=== PATIENT | female | born 1950 | race Caucasian/White ===

== ENCOUNTER → 2016-10-28 | Outpatient (CLI) | payer MEDICARE ==
[~2016-10-28] MED LIST: AMLODIPINE5 MG PO; ASPIRIN FOR CHI81 MG PO; CEFTIN250 MG PO; CENTRUM SILVER1 TA2 PO; CIPROFLOXACIN500 MG PO; DETROL LA4 MG PO; GLYBURIDE5 MG PO; JANUVIA100 MG PO; LEVEMIR10 ML SC; LOVAZA1 GM PO; MACROBID100 M1 PO; METFORMIN1000 MG PO; OXYBUTYNIN10 MG PO; PAXIL40 MG PO; PRINIVIL20 MG PO; REGLAN10 MG PO; SYNTHROID,LEV125 MCG PO; VITAMIN D31000 I2 PO
== END | disposition home or self-care (01) ==
LOC: CARD 09:10
DX: R00.2 Palpitations (principal)

== ENCOUNTER → 2016-11-10 | Outpatient (CLI) | payer MEDICARE | END | disposition home or self-care (01) | LOC: D 10:18 | DX: E11.65 Type 2 diabetes mellitus with hyperglycemia (principal) ==

== ENCOUNTER → 2016-12-02 | Outpatient (CLI) | payer MEDICARE ==
[~2016-12-02] MED LIST changes: +OMEPRAZOLE20 M2 PO; +SIMVASTATIN20 MG PO; +ZETIA10 MG PO
== END | disposition home or self-care (01) ==
LOC: CARD 03:34
DX: I10 Essential (primary) hypertension (principal); G45.1 Carotid artery syndrome (hemispheric); R07.89 Other chest pain; R53.83 Other fatigue; R00.2 Palpitations

== ENCOUNTER 2017-12-20 19:04 | Inpatient (IN) | payer MEDICARE ==
[~2017-12-20] VITALS: Ht 154.9 cm; Wt 88.5 kg
[2017-12-20 19:10] VITALS: BP 199/85
[2017-12-20 20:09] VITALS: BP 166/55
[2017-12-20 20:25] LABS: BASO # 0.1 10*3/uL (0.0-0.1); BASO % 0.8 % (0.0-1.0); EOS # 0.5 10*3/uL (0.0-0.4); EOS % 4.9 % (1.0-4.0); HEMATOCRIT 37.2 % (37.0-47.0); HEMOGLOBIN 12.3 g/dl (12.0-16.0); LYMPH # 2.9 10*3/uL (1.3-4.4); LYMPH % 30.8 % (27.0-41.0); MEAN CELL VOLUME 90.1 fl (81.0-99.0); MEAN CORPUSCULAR HGB 29.8 pg (27.0-31.0); MEAN CORPUSCULAR HGB CONC 33.1 g/dl (33.0-37.0); MEAN PLATELET VOLUME 9.4 fl (9.6-12.3); MONO # 0.9 10*3/uL (0.1-1.0); MONO % 9.6 % (3.0-9.0); NEUT # 5.1 10*3/uL (2.3-7.9); NEUT % 53.6 % (47.0-73.0); PLATELET COUNT AUTOMATED 297 10*3/uL (130-400); RED BLOOD COUNT 4.13 10*6/uL (4.10-5.10); RED CELL DISTRI WIDTH 13.3 % (0-14.5); WHITE BLOOD COUNT 9.6 10*3/uL (4.8-10.8)
[2017-12-20 20:26] VITALS: BP 200/80
[2017-12-20 20:42] LABS: ALBUMIN 3.6 gm/dl (3.1-4.5); ALKALINE PHOSPHATASE 47 U/L (45-117); BUN 14 mg/dl (7-24); CHLORIDE 102 mmol/L (98-107); CREATININE 1.05 mg/dL (0.55-1.02); POTASSIUM 3.8 mmol/L (3.5-5.1); SGOT/AST 24 IU/L (3-35); SGPT/ALT 29 U/L (12-78); SODIUM 138 mmol/L (136-145); TOTAL PROTEIN 7.1 gm/dL (6.4-8.2)
[2017-12-20 20:46] LABS: TROPONIN I < 0.015 ng/ml (<0.045)
[2017-12-20 20:47] VITALS: BP 148/60
[2017-12-20 22:05] VITALS: BP 163/79
[2017-12-20] MEDS ORDERED: GLUCOTROL10 MG PO (22:27)
[2017-12-20] MEDS ORDERED: TRULICITY0.75 MG/0. SC (22:29)
[2017-12-21] VITALS: BP 188/68
[2017-12-21 01:51] LABS: BILIRUBIN NEGATIVE (NEGATIVE); BLOOD NEGATIVE (NEGATIVE); CLARITY CLEAR (CLEAR); COLOR YELLOW (YELLOW); GLUCOSE 2+ (NEGATIVE); KETONE NEGATIVE (NEGATIVE); LEUKO ESTERASE NEGATIVE (NEGATIVE); NITRITE NEGATIVE (NEGATIVE); UROBILINOGEN 0.2 E.U./dl (0.2-1.0)
[2017-12-21 02:00] VITALS: BP 158/80
[2017-12-21 02:01] LABS: URINE AMPHETAMINES < 1000 (1000ng/ml); URINE BARBITURATES < 200 (200ng/ml); URINE BENZODIAZEPINES < 200 (200ng/ml); URINE CANNABINOIDS (THC) < 50 (50ng/ml); URINE COCAINE < 300 (300ng/ml); URINE METHADONE < 300 (300ng/ml); URINE OPIATES < 300 (300ng/ml)
[2017-12-21 02:02] LABS: URINE PHENCYCLIDINE < 25 (25ng/ml)
[2017-12-21 03:09] LABS: BASO % 0.3 % (0.0-1.0); EOS % 0.2 % (1.0-4.0); HEMOGLOBIN 12.6 g/dl (12.0-16.0); LYMPH # 1.4 10*3/uL (1.3-4.4); LYMPH % 15.4 % (27.0-41.0); MEAN CELL VOLUME 89.6 fl (81.0-99.0); MEAN CORPUSCULAR HGB 29.7 pg (27.0-31.0); MEAN CORPUSCULAR HGB CONC 33.2 g/dl (33.0-37.0); MEAN PLATELET VOLUME 9.7 fl (9.6-12.3); MONO # 0.2 10*3/uL (0.1-1.0); NEUT # 7.6 10*3/uL (2.3-7.9); NEUT % 80.9 % (47.0-73.0); PLATELET COUNT AUTOMATED 295 10*3/uL (130-400); RED BLOOD COUNT 4.24 10*6/uL (4.10-5.10); RED CELL DISTRI WIDTH 13.2 % (0-14.5); WHITE BLOOD COUNT 9.4 10*3/uL (4.8-10.8)
[2017-12-21 03:29] LABS: ALBUMIN 3.3 gm/dl (3.1-4.5); ALKALINE PHOSPHATASE 46 U/L (45-117); BUN 13 mg/dl (7-24); CHLORIDE 101 mmol/L (98-107); CHOLESTEROL 133 mg/dL (<200); CREATININE 1.04 mg/dL (0.55-1.02); HDL CHOLESTEROL 41 mg/dl (40-60); LDL CHOLESTEROL 68 mg/dL (9-159); PHOSPHOROUS 2.4 mg/dL (2.5-4.9); POTASSIUM 4.2 mmol/L (3.5-5.1); SGOT/AST 31 IU/L (3-35); SGPT/ALT 30 U/L (12-78); SODIUM 135 mmol/L (136-145); TOTAL PROTEIN 6.9 gm/dL (6.4-8.2); TRIGLYCERIDES 121 mg/dl (<150); VLDL CHOLESTEROL 24 mg/dL (6-40)
[2017-12-21 03:30] LABS: ACT PARTIAL THROMBO TIME 26.1 SECONDS (20.8-31.5); FREE T4 1.03 ng/dl (0.76-1.46)
[2017-12-21 03:34] LABS: THYROID STIM HORMONE (HS) 0.398 uIU/ml (0.358-4.75)
[2017-12-21 08:00] VITALS: BP 116/55
[2017-12-21 12:00] VITALS: BP 143/59
[2017-12-21 16:00] VITALS: BP 127/55
[2017-12-21 20:00] VITALS: BP 104/61
[2017-12-22] VITALS: BP 128/51
[2017-12-22 06:51] LABS: BASO # 0.1 10*3/uL (0.0-0.1); BASO % 0.5 % (0.0-1.0); EOS # 0.4 10*3/uL (0.0-0.4); EOS % 4.6 % (1.0-4.0); HEMATOCRIT 38.5 % (37.0-47.0); HEMOGLOBIN 12.3 g/dl (12.0-16.0); LYMPH # 3.7 10*3/uL (1.3-4.4); LYMPH % 39.9 % (27.0-41.0); MEAN CELL VOLUME 91.4 fl (81.0-99.0); MEAN CORPUSCULAR HGB 29.2 pg (27.0-31.0); MEAN CORPUSCULAR HGB CONC 31.9 g/dl (33.0-37.0); MONO # 0.8 10*3/uL (0.1-1.0); MONO % 8.3 % (3.0-9.0); NEUT # 4.2 10*3/uL (2.3-7.9); NEUT % 46.4 % (47.0-73.0); PLATELET COUNT AUTOMATED 317 10*3/uL (130-400); RED BLOOD COUNT 4.21 10*6/uL (4.10-5.10); RED CELL DISTRI WIDTH 13.6 % (0-14.5); WHITE BLOOD COUNT 9.1 10*3/uL (4.8-10.8)
[2017-12-22 06:54] LABS: ALBUMIN 3.4 gm/dl (3.1-4.5); CREATININE 1.11 mg/dL (0.55-1.02); PHOSPHOROUS 3.4 mg/dL (2.5-4.9); POTASSIUM 4.4 mmol/L (3.5-5.1); TOTAL PROTEIN 6.9 gm/dL (6.4-8.2)
[2017-12-22 08:00] VITALS: BP 139/73
[2017-12-22] MEDS ORDERED: TRULICITY1.5 MG/0.5 SC (10:03)
[2017-12-22] MEDS ORDERED: Zestril,Prinivi40 MG PO (10:03)
[2017-12-22] MEDS ORDERED: COREG3.125 MG PO (10:03)
[2017-12-22] MEDS ORDERED: CRESTOR40 M1 PO (10:04)
[2017-12-22 12:00] VITALS: BP 160/64
[2017-12-22] MEDS ORDERED: SIMVASTATIN40 MG PO (12:28)
== END 2017-12-22 13:10 | disposition home or self-care (01) | DRG 64 ==
LOC: ED 19:04 → 5E 20:56 → EDHOLD 20:56 → 5E 21:50
PROVIDERS: Emergency Medicine Emergency Medical Services; Internal Medicine; Internal Medicine Hospice and Palliative Medicine
DX: I63.9 Cerebral infarction, unspecified (principal); G93.41 Metabolic encephalopathy; N17.0 Acute kidney failure with tubular necrosis; I16.1 Hypertensive emergency; R00.1 Bradycardia, unspecified; R80.9 Proteinuria, unspecified; R81 Glycosuria; E11.65 Type 2 diabetes mellitus with hyperglycemia; I10 Essential (primary) hypertension; E78.5 Hyperlipidemia, unspecified; E03.9 Hypothyroidism, unspecified; F32.9 Major depressive disorder, single episode, unspecified; F41.9 Anxiety disorder, unspecified; E55.9 Vitamin D deficiency, unspecified; E66.01 Morbid (severe) obesity due to excess calories; I11.9 Hypertensive heart disease without heart failure; Z88.0 Allergy status to penicillin; Z88.2 Allergy status to sulfonamides; Z88.8 Allergy status to other drugs, medicaments and biological substances; Z79.899 Other long term (current) drug therapy; Z79.82 Long term (current) use of aspirin; Z90.49 Acquired absence of other specified parts of digestive tract; Z87.440 Personal history of urinary (tract) infections; Z82.49 Family history of ischemic heart disease and other diseases of the circulatory system; Z83.3 Family history of diabetes mellitus; Z82.3 Family history of stroke; Z85.3 Personal history of malignant neoplasm of breast; Z80.0 Family history of malignant neoplasm of digestive organs; Z68.36 Body mass index [BMI] 36.0-36.9, adult

== ENCOUNTER 2017-12-23 23:42 | Emergency (ER) | payer MEDICARE ==
[~2017-12-23] VITALS: Ht 154.9 cm; Wt 81.6 kg
[~2017-12-23 23:42] MED LIST changes: +COREG3.125 MG PO; +CRESTOR40 M1 PO; +GLUCOTROL10 MG PO; +SIMVASTATIN40 MG PO; +TRULICITY0.75 MG/0. SC; +TRULICITY1.5 MG/0.5 SC; +Zestril,Prinivi40 MG PO
[2017-12-24 01:31] LABS: BASO # 0.1 10*3/uL (0.0-0.1); BASO % 0.7 % (0.0-1.0); EOS # 0.5 10*3/uL (0.0-0.4); EOS % 4.2 % (1.0-4.0); HEMATOCRIT 39.5 % (37.0-47.0); HEMOGLOBIN 12.7 g/dl (12.0-16.0); LYMPH # 2.8 10*3/uL (1.3-4.4); LYMPH % 24.8 % (27.0-41.0); MEAN CELL VOLUME 92.1 fl (81.0-99.0); MEAN CORPUSCULAR HGB 29.6 pg (27.0-31.0); MEAN CORPUSCULAR HGB CONC 32.2 g/dl (33.0-37.0); MEAN PLATELET VOLUME 9.8 fl (9.6-12.3); MONO # 1.1 10*3/uL (0.1-1.0); MONO % 9.2 % (3.0-9.0); NEUT % 60.8 % (47.0-73.0); PLATELET COUNT AUTOMATED 288 10*3/uL (130-400); RED BLOOD COUNT 4.29 10*6/uL (4.10-5.10); RED CELL DISTRI WIDTH 13.4 % (0-14.5); WHITE BLOOD COUNT 11.5 10*3/uL (4.8-10.8)
[2017-12-24 01:46] LABS: CREATININE 1.43 mg/dL (0.55-1.02); POTASSIUM 4.1 mmol/L (3.5-5.1)
[2017-12-24] MEDS ORDERED: MIRALAX POWDER255 G1 PO (02:32)
[2017-12-24 02:37] VITALS: BP 149/66
== END 2017-12-24 00:31 | disposition home or self-care (01) ==
LOC: ED 23:42
PROVIDERS: Hospitalist
DX: R51 Headache (principal); K59.00 Constipation, unspecified; I10 Essential (primary) hypertension; E66.9 Obesity, unspecified; E11.9 Type 2 diabetes mellitus without complications; E78.5 Hyperlipidemia, unspecified; E03.9 Hypothyroidism, unspecified; Z96.652 Presence of left artificial knee joint; Z98.890 Other specified postprocedural states; Z79.899 Other long term (current) drug therapy; Z79.82 Long term (current) use of aspirin; Z85.3 Personal history of malignant neoplasm of breast; Z88.0 Allergy status to penicillin; Z88.2 Allergy status to sulfonamides; Z86.73 Personal history of transient ischemic attack (TIA), and cerebral infarction without residual deficits; Z88.1 Allergy status to other antibiotic agents; Z88.6 Allergy status to analgesic agent

== ENCOUNTER → 2018-01-04 | Outpatient (CLI) | payer MEDICARE ==
[~2018-01-04] MED LIST changes: +MIRALAX POWDER255 G1 PO
[2018-01-04 10:52] LABS: BILIRUBIN NEGATIVE (NEGATIVE); BLOOD NEGATIVE (NEGATIVE); CLARITY SL CLOUDY (CLEAR); COLOR YELLOW (YELLOW); GLUCOSE NEGATIVE (NEGATIVE); KETONE NEGATIVE (NEGATIVE); LEUKO ESTERASE 3+ (NEGATIVE); NITRITE NEGATIVE (NEGATIVE); SPECIFIC GRAVITY 1.015 (1.005-1.030); UROBILINOGEN 0.2 E.U./dl (0.2-1.0)
[2018-01-04 10:58] LABS: HEMATOCRIT 42.6 % (37.0-47.0); HEMOGLOBIN 13.7 g/dl (12.0-16.0); MEAN CELL VOLUME 90.8 fl (81.0-99.0); MEAN CORPUSCULAR HGB 29.2 pg (27.0-31.0); MEAN CORPUSCULAR HGB CONC 32.2 g/dl (33.0-37.0); MEAN PLATELET VOLUME 10.5 fl (9.6-12.3); PLATELET COUNT AUTOMATED 309 10*3/uL (130-400); RED BLOOD COUNT 4.69 10*6/uL (4.10-5.10); WHITE BLOOD COUNT 13.3 10*3/uL (4.8-10.8)
[2018-01-04 11:12] LABS: BACTERIA 3+; EPITHELIAL CELLS 20-25; WBC 31-40 wbc/hpf (0-5)
[2018-01-04 11:25] LABS: BASOPHILS 1 % (0-1); TOTAL CELLS COUNTED 100 #CELLS
[2018-01-04 11:26] LABS: PLATELET SUFFICIENCY NORMAL (NORMAL)
[2018-01-04 11:36] LABS: ALBUMIN 3.8 gm/dl (3.1-4.5); CREATININE 1.51 mg/dL (0.55-1.02); POTASSIUM 4.1 mmol/L (3.5-5.1)
[2018-01-04 11:37] LABS: PHOSPHOROUS 3.7 mg/dL (2.5-4.9)
[2018-01-04 13:49] LABS: VITAMIN D, 25-HYDROXY 25.6 ng/mL (30-100)
[2018-01-04 13:50] LABS: PTH INTACT 73.4 pg/mL (14.0-72.0)
== END | disposition home or self-care (01) ==
LOC: LAB 10:03
PROVIDERS: Internal Medicine Nephrology
DX: E11.22 Type 2 diabetes mellitus with diabetic chronic kidney disease (principal); N18.3 Chronic kidney disease, stage 3 (moderate); N25.81 Secondary hyperparathyroidism of renal origin

== ENCOUNTER → 2018-02-13 | Outpatient (CLI) | payer MEDICARE ==
[2018-02-13 09:26] LABS: BASO # 0.1 10*3/uL (0.0-0.1); BASO % 0.7 % (0.0-1.0); EOS # 0.4 10*3/uL (0.0-0.4); EOS % 5.6 % (1.0-4.0); HEMATOCRIT 38.2 % (37.0-47.0); HEMOGLOBIN 12.3 g/dl (12.0-16.0); LYMPH # 2.9 10*3/uL (1.3-4.4); LYMPH % 38.3 % (27.0-41.0); MEAN CELL VOLUME 91.2 fl (81.0-99.0); MEAN CORPUSCULAR HGB 29.4 pg (27.0-31.0); MEAN CORPUSCULAR HGB CONC 32.2 g/dl (33.0-37.0); MEAN PLATELET VOLUME 9.8 fl (9.6-12.3); MONO # 0.7 10*3/uL (0.1-1.0); MONO % 9.7 % (3.0-9.0); NEUT # 3.4 10*3/uL (2.3-7.9); NEUT % 45.4 % (47.0-73.0); PLATELET COUNT AUTOMATED 296 10*3/uL (130-400); RED BLOOD COUNT 4.19 10*6/uL (4.10-5.10); RED CELL DISTRI WIDTH 13.2 % (0-14.5); WHITE BLOOD COUNT 7.4 10*3/uL (4.8-10.8)
[2018-02-13 09:37] LABS: ALBUMIN 3.6 gm/dl (3.1-4.5); CREATININE 1.13 mg/dL (0.55-1.02); PHOSPHOROUS 3.2 mg/dL (2.5-4.9)
[2018-02-13 10:52] LABS: PTH INTACT 106.1 pg/mL (18.5-88.0); VITAMIN D, 25-HYDROXY 41.1 ng/mL (30-100)
[2018-02-13 11:36] LABS: BILIRUBIN NEGATIVE (NEGATIVE); BLOOD NEGATIVE (NEGATIVE); CLARITY SL CLOUDY (CLEAR); COLOR YELLOW (YELLOW); GLUCOSE NEGATIVE (NEGATIVE); KETONE NEGATIVE (NEGATIVE); LEUKO ESTERASE 2+ (NEGATIVE); NITRITE NEGATIVE (NEGATIVE); PH 5.5 (5.0-9.0); SPECIFIC GRAVITY 1.025 (1.005-1.030); UROBILINOGEN 0.2 E.U./dl (0.2-1.0)
[2018-02-13 11:56] LABS: BACTERIA TRACE; EPITHELIAL CELLS 16-20; WBC 21-30 wbc/hpf (0-5)
[2018-02-13 11:57] LABS: YEAST TRACE
== END | disposition home or self-care (01) ==
LOC: LAB 08:39
PROVIDERS: Internal Medicine Nephrology
DX: E11.22 Type 2 diabetes mellitus with diabetic chronic kidney disease (principal); N18.3 Chronic kidney disease, stage 3 (moderate); N25.81 Secondary hyperparathyroidism of renal origin; Z79.899 Other long term (current) drug therapy

== ENCOUNTER → 2018-07-31 | Outpatient (CLI) | payer MEDICARE | END | disposition home or self-care (01) | LOC: RAD 15:43 → US 15:43 | DX: R07.81 Pleurodynia (principal); R10.31 Right lower quadrant pain ==

== ENCOUNTER → 2018-08-01 | Outpatient (CLI) | payer MEDICARE | END | disposition home or self-care (01) | LOC: US 01:44 | DX: K76.0 Fatty (change of) liver, not elsewhere classified (principal); Z90.49 Acquired absence of other specified parts of digestive tract ==

== ENCOUNTER → 2018-09-05 | Outpatient (CLI) | payer MEDICARE | END | disposition home or self-care (01) | LOC: RAD 13:16 | DX: Z13.820 Encounter for screening for osteoporosis (principal); M85.869 Other specified disorders of bone density and structure, unspecified lower leg; M19.90 Unspecified osteoarthritis, unspecified site; K58.9 Irritable bowel syndrome, unspecified; Z78.0 Asymptomatic menopausal state; Z90.710 Acquired absence of both cervix and uterus ==

== ENCOUNTER → 2019-05-01 | Outpatient (CLI) | payer MEDICARE ==
[2019-05-02 11:10] LABS: CREATININE,URINE 58.9 mg/dL (Not Estab.)
[2019-05-02 11:36] LABS: URINE VOLUME 1550 mL
== END | disposition home or self-care (01) ==
LOC: LAB 08:22
PROVIDERS: Internal Medicine Endocrinology, Diabetes & Metabolism
DX: E21.3 Hyperparathyroidism, unspecified (principal)

== ENCOUNTER → 2019-07-24 | Outpatient (CLI) | payer MEDICARE ==
[2019-07-24 10:37] LABS: ALBUMIN 3.5 gm/dl (3.1-4.5); ALKALINE PHOSPHATASE 51 U/L (45-117); BILIRUBIN, DIRECT < 0.1 mg/dL (0.0-0.2); SGOT/AST 31 IU/L (3-35); SGPT/ALT 36 U/L (12-78); TOTAL PROTEIN 7.7 gm/dL (6.4-8.2)
[2019-07-25 11:08] LABS: CREATININE,URINE 36.2 mg/dL (Not Estab.)
[2019-07-30 07:05] LABS: URINE VOLUME 2100 mL
== END | disposition home or self-care (01) ==
LOC: LAB 09:41
PROVIDERS: Internal Medicine Endocrinology, Diabetes & Metabolism; Internal Medicine Gastroenterology
DX: M85.869 Other specified disorders of bone density and structure, unspecified lower leg (principal); K76.0 Fatty (change of) liver, not elsewhere classified

== ENCOUNTER → 2019-12-25 | Outpatient (CLI) | payer MEDICARE | END | disposition home or self-care (01) | LOC: CARD 09:27 | DX: I35.1 Nonrheumatic aortic (valve) insufficiency (principal); I35.0 Nonrheumatic aortic (valve) stenosis; I13.0 Hypertensive heart and chronic kidney disease with heart failure and stage 1 through stage 4 chronic kidney disease, or unspecified chronic kidney disease; I50.9 Heart failure, unspecified; N18.9 Chronic kidney disease, unspecified; R06.09 Other forms of dyspnea ==

== ENCOUNTER → 2020-02-05 | Outpatient (CLI) | payer MEDICARE ==
[2020-02-06 12:06] LABS: CREATININE,URINE 47.9 mg/dL (Not Estab.)
[2020-02-07 08:08] LABS: CREATININE,URINE 47.9 mg/dL (Not Estab.)
== END | disposition home or self-care (01) ==
LOC: LAB 13:03
PROVIDERS: Internal Medicine Endocrinology, Diabetes & Metabolism
DX: E11.65 Type 2 diabetes mellitus with hyperglycemia (principal); E21.3 Hyperparathyroidism, unspecified

== ENCOUNTER → 2020-02-06 | Outpatient (CLI) | payer MEDICARE | END | disposition home or self-care (01) | LOC: CT 00:30 | DX: J84.10 Pulmonary fibrosis, unspecified (principal) ==

== ENCOUNTER → 2020-03-27 | Outpatient (CLI) | payer MEDICARE ==
[~2020-03-27] MED LIST changes: +BASAG SOL SQ; +FISH OIL 1,0001 EAC3 PO; +HUMALOG 751 UNIT/0.0 SC; +LOPRESSOR50 M1 PO; +OZEMPIC1 MG/0.75 SQ
== END | disposition home or self-care (01) ==
LOC: COVID19 09:05
PROVIDERS: ATTEND Internal Medicine Critical Care Medicine
DX: J84.113 Idiopathic non-specific interstitial pneumonitis (principal); Z20.828 Contact with and (suspected) exposure to other viral communicable diseases

== ENCOUNTER → 2020-04-01 | Day surgery (SDC) | payer MEDICARE ==
[~2020-04-01] VITALS: Ht 154.9 cm; Wt 80.7 kg
[2020-04-01 07:52] VITALS: BP 142/68
[2020-04-01 09:05] VITALS: BP 112/49
[2020-04-01 09:20] VITALS: BP 123/60
[2020-04-01 09:35] VITALS: BP 119/52
[2020-04-01 12:19] LABS: BF LYMPHOCYTES 14 %; BF NEUTROPHILS 80 %
[2020-04-02 13:11] LABS: ACID FAST SPEC PROCESSING Direct Inoculation (.)
== END | disposition home or self-care (01) ==
LOC: SDC 03-30 10:15
PROVIDERS: ATTEND Internal Medicine Critical Care Medicine
DX: J84.113 Idiopathic non-specific interstitial pneumonitis (principal); J96.11 Chronic respiratory failure with hypoxia; G47.33 Obstructive sleep apnea (adult) (pediatric); I10 Essential (primary) hypertension; I25.2 Old myocardial infarction; I25.10 Atherosclerotic heart disease of native coronary artery without angina pectoris; E11.9 Type 2 diabetes mellitus without complications; K21.9 Gastro-esophageal reflux disease without esophagitis; E66.9 Obesity, unspecified; Z68.33 Body mass index [BMI] 33.0-33.9, adult; Z99.81 Dependence on supplemental oxygen; Z79.82 Long term (current) use of aspirin; Z79.899 Other long term (current) drug therapy; Z98.890 Other specified postprocedural states; Z83.3 Family history of diabetes mellitus; Z82.49 Family history of ischemic heart disease and other diseases of the circulatory system; Z82.3 Family history of stroke; Z79.84 Long term (current) use of oral hypoglycemic drugs; Z88.0 Allergy status to penicillin; Z88.8 Allergy status to other drugs, medicaments and biological substances

== ENCOUNTER → 2020-06-09 | Outpatient (CLI) | payer MEDICARE ==
[~2020-06-09] MED LIST changes: +CITRACAL SOFT1 EACH PO; +DOXYCYCLINE MO100 M1 PO; +INSULIN LI100 UNIT/2 SQ; +Ipratropium Brom3 ML NEB; +LEXAPRO5 M1 PO; +MUCUS RELIEF600 MG PO; +MYCOLOG CREAM 115 GM T; +OMNICEF300 MG PO; +PANTOPRAZOLE SO40 MG PO; +PAXIL20 M1 PO; -PAXIL40 MG PO; +PREDNISONE10 MG PO; +PYRIDIUM200 M1 PO; +ZITHROMAX500 MG PO
== END | disposition home or self-care (01) ==
LOC: COVID19 16:23
PROVIDERS: ATTEND Nurse Practitioner Primary Care
DX: Z20.828 Contact with and (suspected) exposure to other viral communicable diseases (principal)

== ENCOUNTER 2020-06-15 15:07 | Inpatient (IN) | payer MEDICARE ==
[~2020-06-15] VITALS: Ht 157.5 cm; Wt 78.2 kg
[2020-06-15] VITALS (7 sets, daily range): BP systolic 94–116; BP diastolic 41–82
[~2020-06-15 15:07] MED LIST changes: -CITRACAL SOFT1 EACH PO; -DOXYCYCLINE MO100 M1 PO; -INSULIN LI100 UNIT/2 SQ; -Ipratropium Brom3 ML NEB; -LEXAPRO5 M1 PO; -MUCUS RELIEF600 MG PO; -MYCOLOG CREAM 115 GM T; -OMNICEF300 MG PO; -PANTOPRAZOLE SO40 MG PO; -PREDNISONE10 MG PO; -PYRIDIUM200 M1 PO; -ZITHROMAX500 MG PO
[2020-06-15 15:48] LABS: BASO # 0.1 10*3/uL (0.0-0.1); BASO % 0.4 % (0.0-1.0); EOS # 0.2 10*3/uL (0.0-0.4); EOS % 1.3 % (1.0-4.0); HEMATOCRIT 36.7 % (37.0-47.0); LYMPH # 2.2 10*3/uL (1.3-4.4); LYMPH % 14.7 % (27.0-41.0); MEAN CELL VOLUME 87.6 fl (81.0-99.0); MEAN CORPUSCULAR HGB 28.9 pg (27.0-31.0); MEAN PLATELET VOLUME 8.8 fl (9.6-12.3); MONO # 1.5 10*3/uL (0.1-1.0); MONO % 9.8 % (3.0-9.0); NEUT # 11.1 10*3/uL (2.3-7.9); NEUT % 73.3 % (47.0-73.0); PLATELET COUNT AUTOMATED 293 10*3/uL (130-400); RED BLOOD COUNT 4.19 10*6/uL (4.10-5.10); RED CELL DISTRI WIDTH 13.3 % (0-14.5); WHITE BLOOD COUNT 15.1 10*3/uL (4.8-10.8)
[2020-06-15 16:00] LABS: ACT PARTIAL THROMBO TIME 32.7 SECONDS (20.0-32.1); INTERNATIONAL NORM RATIO 1.1 (2.0-3.5)
[2020-06-15 16:04] LABS: ALBUMIN 2.9 gm/dl (3.1-4.5); CREATININE 1.2 mg/dL (0.55-1.02); POTASSIUM 3.8 mmol/L (3.5-5.1); TOTAL PROTEIN 7.3 gm/dL (6.4-8.2)
[2020-06-15 16:06] LABS: TROPONIN I 0.098 ng/ml (<0.045)
[2020-06-16 00:15] VITALS: BP 92/39
[2020-06-16 04:00] VITALS: BP 143/53
[2020-06-16 05:47] LABS: ABG BASE EXCESS -2.4 mmol/L (-2.0-2.0); ARTERIAL BLOOD GAS PH 7.377 (7.35-7.45)
[2020-06-16 06:48] LABS: BUN 13 mg/dl (7-24); CHLORIDE 106 mmol/L (98-107); CREATININE 0.94 mg/dL (0.55-1.02); POTASSIUM 3.9 mmol/L (3.5-5.1); SODIUM 137 mmol/L (136-145)
[2020-06-16 06:52] LABS: CHOLESTEROL 92 mg/dL (<200); HDL CHOLESTEROL 35 mg/dl (40-60); LDL CHOLESTEROL 34 mg/dL (9-159); TRIGLYCERIDES 113 mg/dl (<150); VLDL CHOLESTEROL 23 mg/dL (6-40)
[2020-06-16 06:58] LABS: BASO % 0.2 % (0.0-1.0); EOS # 0.1 10*3/uL (0.0-0.4); EOS % 0.5 % (1.0-4.0); HEMATOCRIT 36.2 % (37.0-47.0); LYMPH # 1.1 10*3/uL (1.3-4.4); LYMPH % 8.4 % (27.0-41.0); MEAN CELL VOLUME 90.3 fl (81.0-99.0); MEAN CORPUSCULAR HGB 28.4 pg (27.0-31.0); MEAN CORPUSCULAR HGB CONC 31.5 g/dl (33.0-37.0); MEAN PLATELET VOLUME 9.6 fl (9.6-12.3); MONO # 0.3 10*3/uL (0.1-1.0); MONO % 2.6 % (3.0-9.0); NEUT # 11.4 10*3/uL (2.3-7.9); NEUT % 87.8 % (47.0-73.0); PLATELET COUNT AUTOMATED 271 10*3/uL (130-400); RED BLOOD COUNT 4.01 10*6/uL (4.10-5.10); RED CELL DISTRI WIDTH 13.5 % (0-14.5)
[2020-06-16 07:48] LABS: VITAMIN D, 25-HYDROXY 60.1 ng/mL (30-100)
[2020-06-16 08:00] VITALS: BP 100/48; BP 105/72
[2020-06-16] MEDS ORDERED: PYRIDIUM200 M1 PO (10:52)
[2020-06-16] MEDS ORDERED: LEXAPRO5 M1 PO (10:53)
[2020-06-16] MEDS ORDERED: MYCOLOG CREAM 115 GM T (10:54)
[2020-06-16] MEDS ORDERED: CITRACAL SOFT1 EACH PO (10:56)
[2020-06-16 12:00] VITALS: BP 100/50
[2020-06-16 16:00] VITALS: BP 102/54
[2020-06-16 20:00] VITALS: BP 138/45
[2020-06-17] VITALS: BP 140/80
[2020-06-17 02:00] VITALS: BP 140/80
[2020-06-17 06:25] LABS: BASO % 0.1 % (0.0-1.0); HEMATOCRIT 37.1 % (37.0-47.0); LYMPH # 1.5 10*3/uL (1.3-4.4); LYMPH % 9.7 % (27.0-41.0); MEAN CELL VOLUME 89.8 fl (81.0-99.0); MEAN CORPUSCULAR HGB 28.6 pg (27.0-31.0); MEAN CORPUSCULAR HGB CONC 31.8 g/dl (33.0-37.0); MEAN PLATELET VOLUME 9.3 fl (9.6-12.3); MONO # 0.8 10*3/uL (0.1-1.0); NEUT # 13.4 10*3/uL (2.3-7.9); NEUT % 84.5 % (47.0-73.0); PLATELET COUNT AUTOMATED 306 10*3/uL (130-400); RED BLOOD COUNT 4.13 10*6/uL (4.10-5.10); RED CELL DISTRI WIDTH 13.3 % (0-14.5); WHITE BLOOD COUNT 15.9 10*3/uL (4.8-10.8)
[2020-06-17 07:01] LABS: BUN 19 mg/dl (7-24); CHLORIDE 107 mmol/L (98-107); POTASSIUM 4.4 mmol/L (3.5-5.1); SODIUM 137 mmol/L (136-145)
[2020-06-17 08:00] VITALS: BP 102/50
[2020-06-17 12:00] VITALS: BP 114/74
[2020-06-17 16:00] VITALS: BP 118/42
[2020-06-17 20:00] VITALS: BP 139/48
[2020-06-18] VITALS: BP 136/61
[2020-06-18 06:26] LABS: BASO % 0.1 % (0.0-1.0); HEMATOCRIT 35.9 % (37.0-47.0); LYMPH # 1.7 10*3/uL (1.3-4.4); LYMPH % 12.6 % (27.0-41.0); MEAN CELL VOLUME 89.5 fl (81.0-99.0); MEAN CORPUSCULAR HGB 28.4 pg (27.0-31.0); MEAN CORPUSCULAR HGB CONC 31.8 g/dl (33.0-37.0); MEAN PLATELET VOLUME 9.3 fl (9.6-12.3); MONO # 0.4 10*3/uL (0.1-1.0); NEUT # 11.2 10*3/uL (2.3-7.9); NEUT % 83.3 % (47.0-73.0); PLATELET COUNT AUTOMATED 339 10*3/uL (130-400); RED BLOOD COUNT 4.01 10*6/uL (4.10-5.10); RED CELL DISTRI WIDTH 13.3 % (0-14.5); WHITE BLOOD COUNT 13.4 10*3/uL (4.8-10.8)
[2020-06-18 08:00] VITALS: BP 125/57
[2020-06-18 12:00] VITALS: BP 136/62
[2020-06-18 16:00] VITALS: BP 126/52
[2020-06-18 20:00] VITALS: BP 136/53
[2020-06-19] VITALS: BP 152/64
[2020-06-19 07:07] LABS: BASO % 0.2 % (0.0-1.0); HEMATOCRIT 36.6 % (37.0-47.0); LYMPH # 1.5 10*3/uL (1.3-4.4); LYMPH % 15.7 % (27.0-41.0); MEAN CELL VOLUME 89.1 fl (81.0-99.0); MEAN CORPUSCULAR HGB 28.5 pg (27.0-31.0); MEAN PLATELET VOLUME 9.1 fl (9.6-12.3); MONO # 0.4 10*3/uL (0.1-1.0); MONO % 4.2 % (3.0-9.0); NEUT # 7.6 10*3/uL (2.3-7.9); NEUT % 78.3 % (47.0-73.0); PLATELET COUNT AUTOMATED 337 10*3/uL (130-400); RED BLOOD COUNT 4.11 10*6/uL (4.10-5.10); RED CELL DISTRI WIDTH 13.2 % (0-14.5); WHITE BLOOD COUNT 9.6 10*3/uL (4.8-10.8)
[2020-06-19 07:43] LABS: BUN 24 mg/dl (7-24); CHLORIDE 104 mmol/L (98-107); SODIUM 139 mmol/L (136-145)
[2020-06-19 08:00] VITALS: BP 160/86
[2020-06-19 12:00] VITALS: BP 154/58
[2020-06-19 16:00] VITALS: BP 149/68
[2020-06-19 20:00] VITALS: BP 138/53
[2020-06-20] VITALS: BP 133/65
[2020-06-20 04:00] VITALS: BP 137/71
[2020-06-20] MEDS ORDERED: ZITHROMAX500 MG PO ×2 (11:56)
[2020-06-20 12:00] VITALS: BP 115/50
[2020-06-20] MEDS ORDERED: MUCUS RELIEF600 MG PO ×2 (12:00)
[2020-06-20] MEDS ORDERED: PREDNISONE10 MG PO ×2 (12:00)
[2020-06-20] MEDS ORDERED: OMNICEF300 MG PO ×2 (12:00)
[2020-06-20] MEDS ORDERED: Ipratropium Brom3 ML NEB (12:00)
[2020-06-20] MEDS ORDERED: INSULIN LI100 UNIT/2 SQ (12:13)
== END 2020-06-20 14:05 | disposition home health service (06) | DRG 871 ==
LOC: ED 15:07 → EDHOLD 21:22 → 5E 21:22 → EDHOLD 21:50 → 5E 23:31
PROVIDERS: Emergency Medicine; Internal Medicine; Student in an Organized Health Care Education/Training Program; ADMIT Internal Medicine; ATTEND Internal Medicine
DX: A41.9 Sepsis, unspecified organism (principal); J96.21 Acute and chronic respiratory failure with hypoxia; J15.6 Pneumonia due to other Gram-negative bacteria; E44.0 Moderate protein-calorie malnutrition; R65.20 Severe sepsis without septic shock; E83.42 Hypomagnesemia; R77.8 Other specified abnormalities of plasma proteins; E11.69 Type 2 diabetes mellitus with other specified complication; I10 Essential (primary) hypertension; E78.5 Hyperlipidemia, unspecified; Z96.652 Presence of left artificial knee joint; E03.9 Hypothyroidism, unspecified; J84.10 Pulmonary fibrosis, unspecified; R59.1 Generalized enlarged lymph nodes; E66.9 Obesity, unspecified; K21.9 Gastro-esophageal reflux disease without esophagitis; Z85.3 Personal history of malignant neoplasm of breast; Z79.4 Long term (current) use of insulin; Z86.73 Personal history of transient ischemic attack (TIA), and cerebral infarction without residual deficits; Z98.891 History of uterine scar from previous surgery; Z90.11 Acquired absence of right breast and nipple; Z88.0 Allergy status to penicillin; Z88.2 Allergy status to sulfonamides; Z88.1 Allergy status to other antibiotic agents; Z88.8 Allergy status to other drugs, medicaments and biological substances; Z90.49 Acquired absence of other specified parts of digestive tract; Z79.899 Other long term (current) drug therapy; Z68.31 Body mass index [BMI] 31.0-31.9, adult; Z20.828 Contact with and (suspected) exposure to other viral communicable diseases

== ENCOUNTER → 2020-07-24 | Outpatient (CLI) | payer MEDICARE ==
[~2020-07-24] MED LIST changes: +CITRACAL SOFT1 EACH PO; +DOXYCYCLINE MO100 M1 PO; +INSULIN LI100 UNIT/2 SQ; +Ipratropium Brom3 ML NEB; +LEXAPRO5 M1 PO; +MUCUS RELIEF600 MG PO; +MYCOLOG CREAM 115 GM T; +OMNICEF300 MG PO; +PANTOPRAZOLE SO40 MG PO; +PREDNISONE10 MG PO; +PYRIDIUM200 M1 PO; +ZITHROMAX500 MG PO
== END | disposition home or self-care (01) ==
LOC: RAD 10:25
PROVIDERS: ATTEND Nurse Practitioner Primary Care
DX: J18.9 Pneumonia, unspecified organism (principal)

== ENCOUNTER 2020-07-28 14:29 | Observation (INO) | payer MEDICARE ==
[~2020-07-28] VITALS: Ht 157.5 cm; Wt 63.5 kg
[2020-07-28] VITALS (8 sets, daily range): BP systolic 98–104; BP diastolic 46–67
[~2020-07-28 14:29] MED LIST changes: -DOXYCYCLINE MO100 M1 PO; -PANTOPRAZOLE SO40 MG PO
[2020-07-28 14:42] LABS: BASO # 0.1 10*3/uL (0.0-0.1); BASO % 0.7 % (0.0-1.0); EOS # 0.4 10*3/uL (0.0-0.4); HEMATOCRIT 40.2 % (37.0-47.0); LYMPH # 2.7 10*3/uL (1.3-4.4); LYMPH % 25.3 % (27.0-41.0); MEAN CELL VOLUME 90.5 fl (81.0-99.0); MEAN CORPUSCULAR HGB 28.4 pg (27.0-31.0); MEAN CORPUSCULAR HGB CONC 31.3 g/dl (33.0-37.0); MONO # 1.1 10*3/uL (0.1-1.0); MONO % 10.3 % (3.0-9.0); NEUT # 6.3 10*3/uL (2.3-7.9); NEUT % 59.5 % (47.0-73.0); PLATELET COUNT AUTOMATED 332 10*3/uL (130-400); RED BLOOD COUNT 4.44 10*6/uL (4.10-5.10); RED CELL DISTRI WIDTH 13.6 % (0-14.5); WHITE BLOOD COUNT 10.6 10*3/uL (4.8-10.8)
[2020-07-28 14:53] LABS: ACT PARTIAL THROMBO TIME 25.4 SECONDS (20.0-32.1)
[2020-07-28 15:06] LABS: ALBUMIN 3.3 gm/dl (3.1-4.5); ALKALINE PHOSPHATASE 44 U/L (45-117); BUN 19 mg/dl (7-24); CHLORIDE 103 mmol/L (98-107); CREATININE 0.91 mg/dL (0.55-1.02); POTASSIUM 3.7 mmol/L (3.5-5.1); SGOT/AST 17 IU/L (3-35); SGPT/ALT 23 U/L (12-78); SODIUM 139 mmol/L (136-145); TOTAL PROTEIN 7.5 gm/dL (6.4-8.2)
[2020-07-28 15:07] LABS: TROPONIN I < 0.015 ng/ml (<0.045)
[2020-07-29] VITALS (9 sets, daily range): BP systolic 106–161; BP diastolic 49–74
[2020-07-29 05:33] LABS: ALBUMIN 3.2 gm/dl (3.1-4.5); ALKALINE PHOSPHATASE 40 U/L (45-117); BUN 17 mg/dl (7-24); CHLORIDE 105 mmol/L (98-107); CREATININE 1.01 mg/dL (0.55-1.02); SGOT/AST 20 IU/L (3-35); SGPT/ALT 17 U/L (12-78); SODIUM 138 mmol/L (136-145); TOTAL PROTEIN 7.3 gm/dL (6.4-8.2)
[2020-07-29 06:26] LABS: BASO # 0.1 10*3/uL (0.0-0.1); BASO % 0.7 % (0.0-1.0); EOS # 0.6 10*3/uL (0.0-0.4); HEMATOCRIT 38.5 % (37.0-47.0); LYMPH # 2.8 10*3/uL (1.3-4.4); MEAN CELL VOLUME 91.9 fl (81.0-99.0); MEAN CORPUSCULAR HGB 28.6 pg (27.0-31.0); MEAN CORPUSCULAR HGB CONC 31.2 g/dl (33.0-37.0); MEAN PLATELET VOLUME 9.7 fl (9.6-12.3); MONO % 8.9 % (3.0-9.0); NEUT # 7.1 10*3/uL (2.3-7.9); NEUT % 61.1 % (47.0-73.0); PLATELET COUNT AUTOMATED 331 10*3/uL (130-400); RED BLOOD COUNT 4.19 10*6/uL (4.10-5.10); RED CELL DISTRI WIDTH 13.9 % (0-14.5); WHITE BLOOD COUNT 11.6 10*3/uL (4.8-10.8)
[2020-07-30] VITALS: BP 103/55
[2020-07-30 06:35] LABS: BASO # 0.1 10*3/uL (0.0-0.1); BASO % 0.9 % (0.0-1.0); EOS # 0.6 10*3/uL (0.0-0.4); HEMATOCRIT 39.4 % (37.0-47.0); LYMPH # 2.9 10*3/uL (1.3-4.4); LYMPH % 31.7 % (27.0-41.0); MEAN CELL VOLUME 89.7 fl (81.0-99.0); MEAN CORPUSCULAR HGB 28.5 pg (27.0-31.0); MEAN CORPUSCULAR HGB CONC 31.7 g/dl (33.0-37.0); MEAN PLATELET VOLUME 9.4 fl (9.6-12.3); MONO # 1.2 10*3/uL (0.1-1.0); MONO % 12.5 % (3.0-9.0); NEUT # 4.5 10*3/uL (2.3-7.9); NEUT % 48.6 % (47.0-73.0); PLATELET COUNT AUTOMATED 361 10*3/uL (130-400); RED BLOOD COUNT 4.39 10*6/uL (4.10-5.10); RED CELL DISTRI WIDTH 13.9 % (0-14.5); WHITE BLOOD COUNT 9.3 10*3/uL (4.8-10.8)
[2020-07-30 06:47] LABS: CREATININE 1.3 mg/dL (0.55-1.02); POTASSIUM 3.9 mmol/L (3.5-5.1)
[2020-07-30 08:00] VITALS: BP 107/52
[2020-07-30] MEDS ORDERED: DOXYCYCLINE MO100 M1 PO (12:18)
[2020-07-30] MEDS ORDERED: PANTOPRAZOLE SO40 MG PO (12:18)
== END 2020-07-30 16:05 | disposition home or self-care (01) ==
LOC: ED 14:29 → EDHOLD 17:09 → 5E 07-29 09:48
PROVIDERS: Emergency Medicine; Internal Medicine; Social Worker Clinical; ADMIT Internal Medicine; ATTEND Internal Medicine
DX: J18.9 Pneumonia, unspecified organism (principal); J96.01 Acute respiratory failure with hypoxia; A41.9 Sepsis, unspecified organism; R79.82 Elevated C-reactive protein (CRP); D72.829 Elevated white blood cell count, unspecified; E44.0 Moderate protein-calorie malnutrition; E83.42 Hypomagnesemia; R77.8 Other specified abnormalities of plasma proteins; R79.89 Other specified abnormal findings of blood chemistry; I12.9 Hypertensive chronic kidney disease with stage 1 through stage 4 chronic kidney disease, or unspecified chronic kidney disease; N18.30 Chronic kidney disease, stage 3 unspecified; E11.22 Type 2 diabetes mellitus with diabetic chronic kidney disease; E78.5 Hyperlipidemia, unspecified; E03.9 Hypothyroidism, unspecified; F32.9 Major depressive disorder, single episode, unspecified; F41.9 Anxiety disorder, unspecified; K21.9 Gastro-esophageal reflux disease without esophagitis; J84.10 Pulmonary fibrosis, unspecified